=== PATIENT | male | born 1995 | race Two or more races ===

== ENCOUNTER 2024-06-07 09:30 | Emergency (ER) | payer MEDICAID ==
[~2024-06-07] VITALS: Ht 152.4 cm; Wt 80.0 kg
[2024-06-07 09:43] VITALS: BP 132/84; PULSE 112; RESP 18; TEMP 99.9; O2SAT 99
[2024-06-07 09:55] LABS: COVID AG,FIA SOURCE NASAL SWAB
[2024-06-07 10:12] LABS: RAPID GROUP A STREP POSITIVE (NEGATIVE)
[2024-06-07] MEDS: DEXAMETHASONE 4 MG TABLET PO ONE (10:12)
[2024-06-07] MEDS: ACETAMINOPHEN 500 MG TABLET PO ONE (10:13)
[2024-06-07 10:15] LABS: SARS-COV2 (COVID) ANTIGEN,FIA Negative (Negative)
[2024-06-07 10:16] LABS: INFLUENZA TYPE A NEGATIVE FOR TYPE A (NEGATIVE); INFLUENZA TYPE B NEGATIVE FOR TYPE B (NEGATIVE)
[2024-06-07] MEDS ORDERED: AMOX-457 PO (10:16)
[2024-06-07] MEDS: AMOX TR/POT CLAV 875 MG/125 MG TABLET PO ONE (10:20)
== END 2024-06-07 11:24 | disposition home or self-care (01) ==
LOC: EMS 09:33
DX: J02.0 Streptococcal pharyngitis (principal); Z20.822 Contact with and (suspected) exposure to COVID-19
CPT/HCPCS: 99284; 87426; 86308; 87430; 87804; 36415; J8540